=== PATIENT | female | born 1955 | race Caucasian/White ===

== ENCOUNTER 2017-12-21 18:12 | Emergency (ER) | payer OTHER ==
[~2017-12-21] VITALS: Ht 162.6 cm; Wt 72.1 kg
[~2017-12-21 18:12] MED LIST: ACYCLOVIR 400400 MG PO; BUDEPRION XL300 MG PO; BUPROPION XL150 MG PO; CITALOPRAM HBR40 MG PO; DESYREL50 MG PO; METFORMIN HCL500 MG PO; MOBIC15 MG PO; NORCO 5-325 TA1 EACH PO; OXYCODON-ACETA1 EAC1 PO; PREDNISONE50 MG PO; PROTONIX40 M2 PO; ROBAXIN 750 MG750 M1 PO; SIMVASTATIN40 MG PO; TAMIFLU75 MG PO; TRAMADOL 50 MG50 MG PO; VITAMIN D1000 UNI1; WELLBUTRIN SR150 MG PO; XANAX 0.25 MG0.25 MG PO
[2017-12-21] MEDS ORDERED: ASPIR 8181 M1 PO (18:26)
[2017-12-21] MEDS ORDERED: VITAMIN D1000 UNI2 PO (18:26)
[2017-12-21] MEDS ORDERED: JANUVIA100 MG PO (18:26)
[2017-12-21 19:08] LABS: ABSOLUTE EOSINOPHILS 0.1 thou/uL (0.0-0.7); ABSOLUTE LYMPHOCYTES 2.4 thou/uL (0.8-5.3); ABSOLUTE MONOCYTES 0.4 thou/uL (0.0-1.2); ABSOLUTE NEUTROPHILS 3.3 thou/uL (1.6-8.1); BASOPHILS 0.3 %; EOSINOPHILS 2.3 %; HEMATOCRIT 34.1 % (37.0-47.0); HEMOGLOBIN 11.5 gm/dL (12.0-15.0); LYMPHOCYTES 37.8 %; MCH 28.6 pg (26.0-34.0); MCHC 33.6 g/dL (28.0-37.0); MONOCYTES 6.8 %; MPV 8.6 fl. (7.2-11.1); NUCLEATED RBCS 0 /100WBC; PLATELET COUNT* 229 thou/uL (150-400); POLYS 52.8 %; RBC 4.01 mil/uL (4.20-5.00); RDW-CV 14.2 % (10.5-14.5); WBC 6.3 thou/uL (4.0-11.0)
[2017-12-21 19:16] LABS: CALCIUM 9.1 mg/dL (8.5-10.1); CREATININE 1.1 mg/dL (0.6-1.3); POTASSIUM 3.1 mmol/L (3.5-5.1)
[2017-12-21 19:17] LABS: URINE BILIRUBIN NEGATIVE (Negative); URINE BLOOD NEGATIVE (Negative); URINE CLARITY CLEAR; URINE COLOR YELLOW; URINE GLUCOSE-RANDOM NEGATIVE (Negative); URINE KETONES NEGATIVE (Negative); URINE LEUKOCYTES-REFLEX 1+ (Negative); URINE NITRITE-REFLEX NEGATIVE (Negative); URINE PROTEIN NEGATIVE (Negative); URINE SPECIFIC GRAVITY 1.015 (1.005-1.030); URINE UROBILINOGEN 0.2 E.U./dl (0.2-1.0)
[2017-12-21 19:22] LABS: ALBUMIN 3.3 g/dL (3.4-5.0); TOTAL BILIRUBIN 0.3 mg/dL (<0.1-1.0); TOTAL PROTEIN 6.8 g/dL (6.4-8.2)
[2017-12-21 19:24] LABS: SQUAMOUS 0-3 Few /LPF (0-3); TRANSITIONAL EPITHEL CELL 0-3 Few /LPF (None Seen)
[2017-12-21 19:25] LABS: CASTS None Seen /LPF (None Seen); CRYSTALS None Seen /LPF (None Seen); MUCUS 0-3 Light strn/LPF (None Seen); URINE WBC-REFLEX 0-5 Rare /HPF (0-5)
[2017-12-21 19:26] LABS: BACTERIA-REFLEX None Seen /HPF (None Seen); URINE RBC 0-2 Rare /HPF (0-2)
[2017-12-21] MEDS ORDERED: KEFLEX500 M1 PO (19:28)
[2017-12-21] MEDS ORDERED: MEDROLDOSEPACK PO (19:32)
[2017-12-21 19:41] VITALS: BP 153/66
== END 2017-12-21 19:42 | disposition home or self-care (01) ==
LOC: M.ERS 18:12
PROVIDERS: Physician Assistant
DX: R21 Rash and other nonspecific skin eruption (principal); E87.6 Hypokalemia; N39.0 Urinary tract infection, site not specified; K21.9 Gastro-esophageal reflux disease without esophagitis; F41.9 Anxiety disorder, unspecified; E78.00 Pure hypercholesterolemia, unspecified; F32.9 Major depressive disorder, single episode, unspecified; F17.210 Nicotine dependence, cigarettes, uncomplicated; Z90.49 Acquired absence of other specified parts of digestive tract